=== PATIENT | female | born 2000 | race Caucasian/White ===

== ENCOUNTER → 2021-01-15 10:48 | Outpatient (CLI) | payer OTHER, MEDICAID, SELFPAY ==
[2021-01-15 12:21] LABS: Add Manual Diff / Slide Review NO; Basophils Absolute Auto 100 /uL (0-100); Basophils Percent Auto 0.6 % (0-2); Eosinophils Absolute Auto 400 /uL (0-450); Eosinophils Percent Auto 2.7 % (2-4); Hematocrit 28.1 % (36-46); Hemoglobin 7.6 g/dL (12.0-16.0); Lymphocytes Absolute Auto 2100 /uL (1100-4500); Lymphocytes Percent Auto 15.8 % (25-40); Mean Corpuscular HGB Conc 27.2 % (30-36); Mean Corpuscular Hemoglobin 15.9 PG (26-34); Mean Corpuscular Volume 58.5 fL (80-100); Monocytes Absolute Auto 600 /uL (0-900); Monocytes Percent Auto 4.7 % (3-14); Neutrophils Absolute Auto 10300 /uL (1500-7000); Neutrophils Percent Auto 76.2 % (50-75); Platelet Count 622 X10^3/uL (150-400); Red Blood Cell Count 4.79 X10^6/uL (4.0-5.2); Red Cell Distribution Width 19.1 % (11.6-14.8); White Blood Cell Count 13.5 X10^3/uL (4.5-11.0)
[2021-01-15 12:29] LABS: Hemoglobin A1C% w Est Avg Glu 10.7 % (4.0-6.0)
[2021-01-15 12:41] LABS: Anisocytosis 3+; Hypochromasia 3+; Microcytosis 3+
[2021-01-15 13:06] LABS: Alanine Aminotransferase 86 IU/L (<35); Albumin 4.7 g/dL (3.5-5.0); Albumin Globulin Ratio 1.6 (1.0-2.8); Alkaline Phosphatase 76 U/L (38-126); Aspartate Aminotransferase 84 IU/L (14-36); BUN Creatinine Ratio 18.8 (6-22); Bilirubin Total 0.2 mg/dL (0.2-1.3); Blood Urea Nitrogen 9 mg/dL (7-17); Calcium 10.6 mg/dL (8.4-10.2); Carbon Dioxide 22 mmol/L (22-32); Chloride 101 mmol/L (98-107); Estimated Glomerular Filt Rate > 60.0 mL/min (>60); Glucose 241 mg/dL (70-100); HEMOLYSIS < 15 (0-50); Potassium 4.8 mmol/L (3.4-5.1); Sodium 137 mmol/L (137-145); Total Protein 7.7 g/dL (6.3-8.2)
[2021-01-15 13:16] LABS: Free T4, Direct Thyroxine 0.99 ng/dL (0.78-2.19)
[2021-01-15 13:30] LABS: Thyroid Stimulating Hormone 2.33 uIU/mL (0.47-4.68)
[2021-01-15 16:53] LABS: Creatinine Urine Random 274.8 mg/dL
[2021-01-15 16:59] LABS: Microalbumi Creatinin Ratio Ur 12.3 ug/mg CR (<30); Microalbumin Urine Random 3.4 mg/dL (0-1.6)
== END ==
PROVIDERS: PCP Registered Nurse; Referring Provider Registered Nurse; Visit Provider Registered Nurse
DX: E11.9 Type 2 diabetes mellitus without complications (principal); F41.8 Other specified anxiety disorders
CPT/HCPCS: 36415; 80053; 82043; 82570; 83036; 84439; 84443; 85025

== ENCOUNTER → 2022-08-02 07:44 | Outpatient (CLI) | payer OTHER, MEDICAID, SELFPAY ==
[2022-08-02 14:49] LABS: Influenza A - CEPHEID Flu A NEGATIVE (NEGATIVE); Influenza B - CEPHEID Flu B NEGATIVE (NEGATIVE); Respiratory Syncytial Virus Negative (Negative)
[2022-08-02 14:53] LABS: COVID-19 CEPHEID 4-PLEX PCR Negative (Negative)
== END ==
PROVIDERS: PCP Nurse Practitioner Family; Visit Provider Physician Assistant Medical
DX: R50.9 Fever, unspecified (principal); Z20.822 Contact with and (suspected) exposure to COVID-19
CPT/HCPCS: 0241U